=== PATIENT | female | born 1985 | race Caucasian/White ===

== ENCOUNTER 2019-06-20 20:54 | Emergency (ER) | payer SELFPAY ==
[~2019-06-20] VITALS: Ht 154.9 cm; Wt 64.0 kg
[2019-06-20 21:30] LABS: BILIRUBIN,URINE NEGATIVE (NEG); CLARITY,URINE CLEAR; COLOR,URINE YELLOW; NITRITE,URINE NEGATIVE (NEG); PH,URINE 6.5 (<5.0-8.0); PROTEIN,URINE NEGATIVE (NEG-TRACE)
[2019-06-20 21:36] LABS: SQUAMOUS EPITHELIAL CELL,UR MOD /LPF
[2019-06-20 21:37] LABS: RBC,URINE 0 /HPF (0-2)
[2019-06-20 21:38] LABS: BACTERIA,URINE MODERATE /HPF (0-FEW)
--- NOTE | 2019-06-20 21:42 | PHYS DOC ---
Past Medical History Past Medical History: Other Additional Past Medical Histor: RAYNAUDS Past Surgical History: Other Additional Past Surgical Histo: BILATERAL CARPAL TUNNEL Smoking Status: Never Smoker Alcohol Use: None General Adult EDM: Chief Complaint: BACK PAIN - NO INJURY HPI: HPI: Patient is a 33 year old female 1 para 0 currently approximately 12 weeks presenting to the ED today complaining of mild intermittent left low back pain radiating to the abdomen that began yesterday. Patient denies any fever, nausea, vomiting. Denies any urgency frequency dysuria. She reports she has been following up with her own [facility] for her and was last seen on May 17, 2019 where they did a ultrasound that confirmed an IUP. Denies any unusual vaginal discharge. Denies any bleeding. Review of Systems: Review of Systems: Constitutional: Denies fever or chills. [] Eyes: Denies change in visual acuity. [] HENT: Denies nasal congestion or sore throat. [] Respiratory: Denies cough or shortness of breath. [] Cardiovascular: Denies chest pain or edema. [] GI: Reports lower abdominal pain, denies nausea, vomiting, bloody stools or diarrhea. [] : Denies dysuria. [] Musculoskeletal: Reports left low back pain Integument: Denies rash. [] Neurologic: Denies headache, focal weakness or sensory changes. [] Endocrine: Denies polyuria or polydipsia. [] Lymphatic: Denies swollen glands. [] Psychiatric: Denies depression or anxiety. [] Heart Score: Risk Factors: Risk Factors: DM, Current or recent (<one month) smoker, HTN, HLP, family history of CAD, obesity. Risk Scores: Score 0 - 3: 2.5% MACE over next 6 weeks - Discharge Home Score 4 - 6: 20.3% MACE over next 6 weeks - Admit for Clinical Observation Score 7 - 10: 72.7% MACE over next 6 weeks - Early Invasive Strategies Allergies: Allergies: Allergies Coded Allergies Type Severity Reaction Last Updated Verified No Known Drug Allergies 06/20/19 No Physical Exam: PE: Constitutional: Well developed, well nourished, no acute distress, non-toxic appearance. [] HENT: Normocephalic, atraumatic, bilateral external ears normal, oropharynx moist, no oral exudates, nose normal. [] Eyes: PERRLA, EOMI, conjunctiva normal, no discharge. [] Neck: Normal range of motion, no tenderness, supple, no stridor. [] Cardiovascular:Heart rate regular rhythm, no murmur [] Lungs & Thorax: Bilateral breath sounds clear to auscultation [] Abdomen: Bowel sounds normal, soft, no tenderness, no masses, no pulsatile masses. [] Skin: Warm, dry, no erythema, no rash. [] Back: No tenderness, no CVA tenderness. [] Extremities: No tenderness, no cyanosis, no clubbing, ROM intact, no edema. [] Neurologic: Alert and oriented X 3, normal motor function, normal sensory function, no focal deficits noted. [] Psychologic: Smiling as we speak Current Patient Data: Labs: Laboratory Tests Test 06/20/19 21:17 POC Urine HCG, Qualitative Hcg positive (Negative) EKG: EKG: [] Radiology/Procedures: Radiology/Procedures: [] Course & Med Decision Making: Course & Med Decision Making Pertinent Labs and Imaging studies reviewed. (See chart for details) This is a 33-year-old female patient 1 para 0 currently 12 weeks presenting to the ED today complaining of left low back pain radiating to the lower abdomen, symptoms began yesterday. Urine analysis noted for UTI, discharged on cephalexin. Preliminary read ultrasound is negative. D/c to home. F/u with OB in 1 week Eliot Disclaimer: Eliot Disclaimer: This electronic medical record was generated, in whole or in part, using a voice recognition dictation system. Departure Departure Impression: Primary Impression: Urinary tract infection Qualified Codes: N39.0 - Urinary tract infection, site not specified Disposition: HOME, SELF-CARE Condition: STABLE Referrals: UNKNOWN PCP NAME (PCP) Follow-up with your [facility] in the course of this week Patient Instructions: Urinary Tract Infection Additional Instructions: You have urinary tract infection, take the prescribed antibiotics until completed. Follow-up with your own doctor in the course of this week or next week Scripts Cephalexin (CEPHALEXIN) 500 Mg Tablet 1 TAB PO BID, #14 TAB Prov: MJ FALK APRN 06/20/19 MJ FALK APRN Jun 20, 2019 21:42
[2019-06-20] MEDS ORDERED: CEPH500T PO (21:48)
[2019-06-20 22:03] VITALS: BP 110/58
--- NOTE | 2019-06-20 22:08 | RAD ---
Study: US OB < 14 WKS DATE: 06/20/2019 9:24 PM INDICATION: Abdominal pain. COMPARISON: None TECHNIQUE: Transabdominal ultrasonography of the pelvis was performed. Color Doppler and duplex were utilized as appropriate. FINDINGS: Single live intrauterine with a crown-rump length measuring 4.96 cm corresponding to an estimated gestational age of 11 weeks 5 days +/- 7 days. heart rate of 169 bpm. No subchorionic hemorrhage is identified. The cervix is closed and measured at 3.5 cm. No uterine parenchymal abnormality. Normal Doppler flow to both ovaries. The right ovary is measured at 2.4 x 1.7 x 1.6 cm and the left ovary 2.6 x 2.2 x 1.9 cm though the left ovary is not well characterized due to bowel gas. No free fluid seen within the deep pelvis. IMPRESSION: 1. Single live intrauterine with an estimate a gestational age by ultrasound of 11 weeks 5 days. No complicating features. 2. Normal Doppler flow to both ovaries. Collectively no acute abnormality seen to account for the patient's symptoms. Electronically signed by: MARCELLE FOOTE MD (06/20/2019 10:06 PM) [id number]
== END 2019-06-20 22:00 | disposition home or self-care (01) ==
LOC: ER 20:54
DX: O23.41 Unspecified infection of urinary tract in pregnancy, first trimester (principal); M54.5 Low back pain; R10.30 Lower abdominal pain, unspecified; Z98.890 Other specified postprocedural states; Z3A.12 12 weeks gestation of pregnancy
CPT/HCPCS: 76801; 81001; 81025; 87086; 99284